=== PATIENT | male | born 1975 | race Caucasian/White ===

== ENCOUNTER 2020-08-29 16:09 | Emergency (ER) | payer BC, MEDICAID ==
[~2020-08-29] VITALS: Ht 190.5 cm; Wt 187.9 kg
[2020-08-29 16:42] VITALS: BP 171/82
[2020-08-29] MEDS: LIDOcaine 2% 10ml TOPICAL JELLY (Urojet) TP ONE (17:50)
--- NOTE | 2020-08-29 18:00 | NUR ---
Attempted to place aldana catheter, found two small hard objects at end of urethra, objects placed in sample cup to be sent to lab. Ureathra too swollen to start aldana with the kit on hand, went to supply room to obtain smaller catheter. On return to room pt. had urinated on floor, pt. stated "I stood up because the bed was uncomfortable and the urine just started flowing, but I was able to stop it". Pt. was able to ambulate to restroom and provide UA sample and finish voiding. Pt. states relief of complaint after voiding.
--- NOTE | 2020-08-29 18:07 | NUR ---
U/A TAKEN TO LAB
[2020-08-29 18:26] LABS: CLARITY,URINE CLEAR (Clear); COLOR,URINE YELLOW (Yellow); GLUCOSE, URINE NEGATIVE (Neg); KETONES,URINE NEGATIVE (Neg); LEUKOCYTE ESTERASE ,URINE NEGATIVE (Neg); NITRITES, URINE NEGATIVE (Neg); OCCULT BLOOD,URINE NEGATIVE (Neg); PH,URINE 5.5 (4.8-8.0); PROTEIN,URINE NEGATIVE (Neg); UROBILINOGEN,URINE 0.2 E.U/dL (0.2-1.0)
[2020-08-29 18:34] LABS: UA COLLECTION TYPE CLN CATCH MIDSTREAM
== END 2020-08-29 19:47 | disposition home or self-care (01) ==
LOC: ER 16:11
DX: R33.9 Retention of urine, unspecified (principal)
CPT/HCPCS: 81003; 99284

== ENCOUNTER 2021-02-07 20:44 | Emergency (ER) | payer BC ==
[~2021-02-07] VITALS: Ht 177.8 cm; Wt 197.8 kg
--- NOTE | 2021-02-07 22:38 | NUR ---
Pts bladder scan showing 770 ccs. Pt was pacing in the room because of discomfort, but once lying down reports he was more comfortable. Shortly after lying down pt had episode of incontinence with large amt of urine. Unable to measure d/t incontinence. Annalisa Gil udpated.
[2021-02-07] MEDS ORDERED: FLO0.4C PO (23:02)
[2021-02-07 23:03] LABS: COLOR,URINE YELLOW (Yellow); GLUCOSE, URINE NEGATIVE (Neg); KETONES,URINE NEGATIVE (Neg); LEUKOCYTE ESTERASE ,URINE NEGATIVE (Neg); NITRITES, URINE NEGATIVE (Neg); OCCULT BLOOD,URINE TRACE-LYSED (Neg); PROTEIN,URINE TRACE mg/dl (Neg); UROBILINOGEN,URINE 0.2 E.U/dL (0.2-1.0)
[2021-02-07 23:11] LABS: CLARITY,URINE SLIGHTLY CLOUDY (Clear); UA COLLECTION TYPE URINAL
[2021-02-07 23:12] LABS: BACTERIA,URINE FEW /HPF (Neg); MUCUS STRANDS MODERATE /LPF (Neg); RBC,URINE 0-2 /HPF (0-2); SPERM FEW /HPF (NEGATIVE); SQUAMOUS EPITHELIAL CELL,UR FEW /LPF (FEW)
[2021-02-07 23:29] VITALS: BP 153/100
--- NOTE | 2021-02-07 23:34 | NUR ---
pt voiding adtl 300 cc's in urinal. reports relief and no pain. RADHA Gil talking with Pt prior to DC.
== END 2021-02-07 23:42 | disposition home or self-care (01) ==
LOC: ER 20:45
DX: R33.9 Retention of urine, unspecified (principal); Z87.442 Personal history of urinary calculi; Z79.899 Other long term (current) drug therapy
CPT/HCPCS: 81001; 87077; 87088; 87186; 99284